=== PATIENT | female | born 1940 | race Caucasian/White ===

== ENCOUNTER 2019-05-28 09:59 | Inpatient (IN) | payer OTHER ==
[~2019-05-28] VITALS: Ht 154.9 cm; Wt 59.0 kg
--- NOTE | ~2019-05-28 | CON ---
[address] [address] CONSULTATION Name: RENITA SIMS Room: [address] IN M.R.#: [id number] Admission: 05/28/19 Attend Phys: Keyonna Kelly Discharge: Date of : 40 Report #: [id number] THIS REPORT FOR: //name// CC: Ulysses Presley DICTATED BY: Melina Boswell [facility] DATE OF SERVICE: 05/29/2019 Please note at the time of this dictation, the patient was seen and physically examined by myself. REASON FOR CONSULTATION: Elevated LFTs. HISTORY OF PRESENT ILLNESS: This is a pleasant 78-year-old female who is well known to our practice, who recently saw Dr. Sorensen in the office for some of her diarrhea, when she was placed on budesonide at that time for her chronic GI issues. She states that it has helped with her overall feeling; however, her bowels are still mushy in consistency and she states it has helped her energy level and her other aspect of life. In further investigating with the patient, she states she did have a cholecystectomy back several years ago, that she states was related to it being nonfunctioning. However, she states over the last several years, she has noted off and on this fullness feeling in her epigastric to upper chest area that may last for not very long, up to 8 hours, and then it goes away and it is very intermittent when it comes back. It is not associated with any other symptoms at that time. The patient states, when she was admitted yesterday after falling and fracturing her left hip, that while she was here last evening, she did have this fullness feeling in her chest that lasted most of the evening, which was noted on admission, her LFTs were completely normal and have gradually tripled to quadrupled in numbers since her being here. She states she is no longer complaining of any chest fullness like she had before. The patient did have an ultrasound back in 08/2018 that was fairly normal except for fatty liver. Her liver enzymes done on 04/16 were completely normal as well, prior to her seeing Dr. Sorensen. ALLERGIES: CIPRO AND QUININE. MEDICATIONS: From home include her gabapentin, Pulmicort, probiotic, Mag-Ox, amlodipine, omeprazole, and her budesonide. PAST MEDICAL HISTORY: Irritable bowel syndrome, hypertension, neuropathy. PAST SURGICAL HISTORY: Hysterectomy, cholecystectomy, appendectomy, and [place] [address] CONSULTATION Name: RENITA SIMS Room: [address] IN [facility].#: [id number] Admission: 05/28/19 Attend Phys: Keyonna Kelly Discharge: Date of : 40 Report #: [id number] FAMILY HISTORY: Negative for any GI or female cancers. SOCIAL HISTORY: Denies any tobacco use or illegal drug use, but does have some alcohol once a week. REVIEW OF SYSTEMS: Twelve-point review of systems is essentially negative except what is mentioned in the HPI. PHYSICAL EXAMINATION: VITAL SIGNS: Temperature 37.1, pulse 73, respirations 16, blood pressure 123/95. HEART: Regular rate and rhythm. LUNGS: Clear. ABDOMEN: Soft, positive bowel sounds in all 4 quadrants with no masses or tenderness noted. LABORATORY DATA: Hemoglobin 13.6, white count is 7.5, platelets is 96. GFR is 61. PT is 10.3 and INR 1. On admission, total bilirubin was 0.6 and today, she elevated to 3.1. Alkaline phosphatase on admission was 264, she is 405. ALT on admission was 188, she is bumped to 362, AST was 110 and she bumped to 580. IMPRESSION: 1. Epigastric fullness last evening, resolved now. 2. Elevated liver function tests. 3. Thrombocytopenia. 4. Fractured left hip with nailing this a.m. 5. History of diarrhea, currently on budesonide. PLAN: 1. We will obtain an ultrasound of her abdomen to further evaluate her liver in CPD since a MRCP is contraindicated with her recent hip nailing this a.m. 2. We will recheck labs, CBC, CMP, and PT/INR in the a.m. 3. Further recommendations to be made once the ultrasound has been reviewed. Thank you for allowing us to participate in this patient's care. Please do not hesitate to call with any questions in regard to this consult. By: [id number] Swartz MD /nt
[~2019-05-28 09:59] MED LIST: AZOR 10-20 MG1 EACH PO; CARAFATE 1 GM TA1 G1 PO; MACRODANTIN50 MG PO; OMEPRAZOLE40 MG PO; PRILOSEC40 MG; PROZAC 10 MG CA10 MG PO
[2019-05-28 10:02] VITALS: BP 145/56
[2019-05-28] MEDS ORDERED: TOLTERODINE TART1 MG PO (10:07)
[2019-05-28] MEDS ORDERED: NEURONTIN 300300 M1 PO (10:07)
[2019-05-28] MEDS ORDERED: MAGOX 400400 MG PO (10:08)
[2019-05-28] MEDS ORDERED: PROBIOTIC1 EAC1 PO (10:08)
[2019-05-28] MEDS ORDERED: PULMICORT0.5 MG/22 INH (10:08)
[2019-05-28 11:22] LABS: ABSOLUTE LYMPHOCYTES 1.7 thou/uL (0.8-5.3); ABSOLUTE MONOCYTES 0.6 thou/uL (0.0-1.2); ABSOLUTE NEUTROPHILS 5.6 thou/uL (1.6-8.1); BASOPHILS 0.6 %; EOSINOPHILS 0.1 %; HEMATOCRIT 39.9 % (37.0-47.0); HEMOGLOBIN 14.1 gm/dL (12.0-15.0); LYMPHOCYTES 20.9 %; MCH 36.1 pg (26.0-34.0); MCHC 35.4 g/dL (28.0-37.0); MCV 102.2 fL (80.0-100.0); MONOCYTES 7.2 %; MPV 9.5 fl. (7.2-11.1); NUCLEATED RBCS 0 /100WBC; PLATELET COUNT* 111 thou/uL (150-400); POLYS 71.2 %; RDW-CV 14.1 % (10.5-14.5); WBC 7.9 thou/uL (4.0-11.0)
[2019-05-28 11:30] LABS: CALCIUM 8.6 mg/dL (8.5-10.1); POTASSIUM 3.3 mmol/L (3.5-5.1)
[2019-05-28 11:35] LABS: ALBUMIN 2.7 g/dL (3.4-5.0); TOTAL BILIRUBIN 0.6 mg/dL (<0.1-1.0); TOTAL PROTEIN 6.1 g/dL (6.4-8.2)
[2019-05-28 12:31] LABS: APTT 23.5 Seconds (25.0-31.3); PROTIME 10.3 Seconds (9.20-11.50)
[2019-05-28 15:30] VITALS: BP 165/108
--- NOTE | 2019-05-28 16:53 | 2DMMODE ---
[place] [address] 2 D/M-MODE ECHOCARDIOGRAM Name: RENITA SIMS Room: [address] IN [facility]#: [id number] Admission: 05/28/19 Attend Phys: Carl Presley Discharge: Date of : 40 Date of Service: 05/28/19 1652 Report #: [id number] THIS REPORT FOR: //name// APPROVED REPORT Study performed: 05/28/2019 14:59:44 EXAM: Comprehensive 2D, Doppler, and color-flow Echocardiogram Patient Location: In-Patient Room #: er Status: stat BSA: 1.57 HR: 77 bpm BP: 154/109 mmHg Rhythm: NSR Other Information Study Quality: Good Indications Murmur 2D Dimensions IVSd: 14.74 (7-11mm) LVOT Diam: 19.67 (18-24mm) LVDd: 38.60 mm PWd: 13.84 (7-11mm) Ascending Ao: 30.31 (22-36mm) LVDs: 21.97 (25-40mm) Aortic Root: 31.30 mm Volumes Left Atrial Volume (Systole) LA ESV Index: 22.80 mL/m2 Aortic Valve AoV Peak Raudel.: 3.09 m/s AO Peak Gr.: 38.25 mmHg LVOT Max P.52 mmHg AO Mean Gr.: 20.83 mmHg LVOT Mean P.01 mmHg LVOT Max V: 1.06 m/s AO V2 VTI: 59.93 cm LVOT Mean V: 0.64 m/s DEBORAH (VTI): 1.02 cm2 LVOT V1 VTI: 20.18 cm Mitral Valve E/A Ratio: 0.70 MV Decel. Time: 332.26 ms MV E Max Raudel.: 0.85 m/[place] [address] 2 D/M-MODE ECHOCARDIOGRAM Name: SIMSRENITA Oziel Room: [address] IN [facility].#: [id number] Admission: 05/28/19 Attend Phys: Carl Presley Discharge: Date of : 40 Date of Service: 05/28/19 1652 Report #: [id number] MV PHT: 96.36 ms MVA (PHT): 2.28 cm2 TDI E/Lateral E': 10.63 E/Medial E': 9.44 Medial E' Raudel.: 0.09 m/s Lateral E' Raudel.: 0.08 m/s Pulmonary Valve PV Peak Raudel.: 0.95 m/s PV Peak Gr.: 3.59 mmHg Left Ventricle The left ventricle is normal size. There is normal LV segmental wall motion. Mild to moderate concentric left ventricular hypertrophy. Left ventricular systolic function is normal. The left ventricular ejection fraction is within the normal range. LVEF is 60-65%. Grade I - abnormal relaxation pattern. Right Ventricle The right ventricle is normal size. The right ventricular systolic function is normal. Atria The left atrium size is normal. The right atrium size is normal. Aortic Valve Moderate aortic valve sclerosis. No aortic regurgitation is present. Moderate aortic stenosis. Mitral Valve There is mitral annular calcification. Trace mitral regurgitation. No evidence of mitral valve stenosis. Tricuspid Valve The tricuspid valve is normal in structure. Unable to assess PA pressure. Trace tricuspid regurgitation. Pulmonic Valve The pulmonary valve is normal in structure. There is no pulmonic valvular regurgitation. Great Vessels The aortic root is normal in size. IVC is normal in size and collapses >50% [place] [address] 2 D/M-MODE ECHOCARDIOGRAM Name: RENITA SIMS Room: [address] IN [facility]#: [id number] Admission: 05/28/19 Attend Phys: Carl Presley Discharge: Date of : 40 Date of Service: 05/28/19 1652 Report #: [id number] Pericardium There is no pericardial effusion. <Conclusion> The left ventricle is normal size. Mild to moderate concentric left ventricular hypertrophy. Left ventricular systolic function is normal. The left ventricular ejection fraction is within the normal range. LVEF is 60-65%. Grade I - abnormal relaxation pattern. The right ventricle is normal size. Moderate aortic valve sclerosis. No aortic regurgitation is present. Moderate aortic stenosis. There is mitral annular calcification. Trace mitral regurgitation. No evidence of mitral valve stenosis. IVC is normal in size and collapses >50% with inspiration. There is no pericardial effusion. There is normal LV segmental wall motion. <ELECTRONICALLY SIGNED> By: Shyam Aguilar MD, [facility] 05/28/191651 51 51 Shyam Aguilar MD, FAC /INF
--- NOTE | 2019-05-28 17:28 | NUR ---
REGULAR DIET TRAY ORDERED FOR PATIENT HER SURGERY HAS BEEN PUSHED BACK TO TOMORROW. PT WILL BE NPO AFTER MIDNIGHT. DIETARY HAS BEEN CALLED AND IS BRINGING HER A TRAY TO ROOM 4.
[2019-05-28 17:44] VITALS: BP 165/108
--- NOTE | 2019-05-28 18:06 | EKG ---
[place] [address] ELECTROCARDIOGRAM REPORT Name: RENITA SIMS Room: [address] ADM IN .R.#: [id number] Admission: 05/28/19 Attend Phys: Keyonna Kelly Discharge: Date of : 40 Report #: [id number] THIS REPORT FOR: //name// [facility] ED Test Date: 2019-05-28 Test Time: 11:20:07 Pat Name: RENITA SIMS Department: Room: [facility] Gender: [place] Bag[employer] Agent: : [id number] Requested By: Shana Gooden Order Number: [id number] MD: Isra Borden Measurements Intervals [place] Rate: 70 P: 53 HI: 123 QRS: -12 QRSD: 82 T: 119 QT: 397 QTc: 429 Interpretive Statements Sinus rhythm Probable left atrial enlargement Abnormal R-wave progression, early transition LVH with secondary repolarization abnormality Compared to ECG 03/28/2016 08:34:00 Early repolarization now present Electronically Signed On 05-28-2019 18:06:15 CDT by Isra Borden [email or web address] <ELECTRONICALLY SIGNED> By: Maru Borden MD, [facility] 05/28/19 1806 1120 1120 Maru Borden MD, [facility] /EPI
[2019-05-28 18:45] VITALS: BP 141/80
--- NOTE | 2019-05-28 19:44 | NUR ---
PATIENT ARRIVED TO UNIT AT 1755. ALERT AND ORIENTED X4. ADMISSION HISTORY AND ASSESSMENT COMPLETED AND CHARTED. VSS ON ROOM AIR. FENTANYL GIVEN IN ED BEFORE PATIENT WAS TRANSFERRED, PAIN RATED AT A 6 AFTER TRANSFERRING FROM ER CART TO THE BED. PATIENT AND ORIENTED TO ROOM. PATIENT RECEIVED A DINNER TRAY AND WILL BE NPO AFTER MIDNIGHT. CALL LIGHT PLACED IN REACH. WILL CONTINUE TO MONITOR.
[2019-05-28 21:21] VITALS: BP 123/95
[2019-05-29 03:49] LABS: HEMATOCRIT 39.1 % (37.0-47.0); HEMOGLOBIN 13.6 gm/dL (12.0-15.0); MCH 35.9 pg (26.0-34.0); MCHC 34.9 g/dL (28.0-37.0); MPV 9.1 fl. (7.2-11.1); RBC 3.8 mil/uL (4.20-5.00); RDW-CV 14.5 % (10.5-14.5); WBC 7.5 thou/uL (4.0-11.0)
[2019-05-29 04:04] LABS: ALBUMIN 2.7 g/dL (3.4-5.0); CALCIUM 8.6 mg/dL (8.5-10.1); CREATININE 0.9 mg/dL (0.6-1.3); POTASSIUM 3.6 mmol/L (3.5-5.1); TOTAL BILIRUBIN 3.1 mg/dL (<0.1-1.0); TOTAL PROTEIN 6.1 g/dL (6.4-8.2)
--- NOTE | 2019-05-29 05:21 | NUR ---
SURGERY FOR 0700 ON 05/29/19. NPO SINCE MIDNIGHT. REQUESTED PAIN MED ONCE GAVE 4MG OF MORPHINE FOR PAIN 03/25. CONSENT AND PRE-OP CHECKLIST ON CHART. CONSENT NOT SIGNED DUE TO NO ORDERS FOR SO. PACU CALLED WILL TRANSPORT AROUND 0540 THIS MORNING. PATIENT WAS ABLE TO SLEEP THROUGH THE NIGHT. STILL HAS BILLINGS.
--- NOTE | 2019-05-29 08:00 | NUR ---
PT IN OR
--- NOTE | 2019-05-29 10:22 | NUR ---
PT JUST BACK FROM PACU. SATS IN LOW 80S. PT PLACED ON NRB MASK. FAMILY AT BS AND UPDATED FROM PLAN OF CARE
[2019-05-29 10:30] VITALS: BP 125/65
--- NOTE | 2019-05-29 15:30 | NUR ---
PT.AWAKE. HAD OR THIS AM. KEPT TAKING O2 OFF. ENCOURAGED HER TO KEEP IT ON. SHE SAID SHE LIVES AT HOME WITH HER . SHE SAID HER CAN HELP HER AT HOME NEEDED. SHE SAID SHE IS NORMALLY INDEPENDNET. SHE HAS A ROLLER WALKER AND A WALKER WITHOUT WHEELS BUT SHE DOESN'T USE THEM. SHE DRIVES, COOKS,SHOPS,CLEANS. DISCUSSED DISCHARGE PLANNING,DEPENDING ON HOW SHE DOES WITH THERAPY. DISCUSSED REHAB UNIT,SNF OR HOME WITH HOME HEALTH . SHE UNDERSTOOD. CM WILL FOLLOW.
[2019-05-29 16:00] VITALS: BP 128/69
--- NOTE | 2019-05-29 17:45 | NUR ---
PT TO OR THIS AM. PT SLIGHTLY CONFUSED WHEN COMING BACK FROM SURGERY BUT SHIFT PROGRESSES PT IS LESS CONFUSED. BANANA BAG INFUSED. PAIN WELL CONTROLLED. TOLERATING PO WELL. AT BS
[2019-05-29 20:25] VITALS: BP 137/72
[2019-05-30] VITALS: BP 141/69
[2019-05-30 03:59] VITALS: BP 125/70
[2019-05-30 04:42] LABS: HEMATOCRIT 35.2 % (37.0-47.0); HEMOGLOBIN 12.2 gm/dL (12.0-15.0)
[2019-05-30 04:50] LABS: INR 0.9; PROTIME 9.3 Seconds (9.20-11.50)
[2019-05-30 05:02] LABS: ALBUMIN 2.3 g/dL (3.4-5.0); CALCIUM 8.4 mg/dL (8.5-10.1); CREATININE 0.8 mg/dL (0.6-1.3); POTASSIUM 3.7 mmol/L (3.5-5.1); TOTAL BILIRUBIN 2.5 mg/dL (<0.1-1.0); TOTAL PROTEIN 5.7 g/dL (6.4-8.2)
--- NOTE | 2019-05-30 06:52 | NUR ---
PT ALERT AND ORIENTED, CONFUSED AT TIMES. ON 3L OF OXYGEN BY NC. PAIN CONTROLLED WITH OXY IR. DRESSING TO LT THIGH C/D/I. BILLINGS IN PLACE. PT SLEEPING WELL THROUGH THE NIGHT. HOURLY ROUNDING COMPLETED. WILL CONTINUE TO MONITOR.
[2019-05-30 08:30] VITALS: BP 114/53
--- NOTE | 2019-05-30 11:06 | NUR ---
Spoke with , anticipates that pt will need skilled at dc. Spoke with Pt's in room, in agreement and wants [facility]. CM faxed initial referral. OT eval ordered today, and will need to be faxed to [phone] once available. Insurance auth will need to be obtained prior to dc.
[2019-05-30 16:00] VITALS: BP 118/58
--- NOTE | 2019-05-30 17:33 | NUR ---
PATIENT RESTING IN BED. PATIENT VERY DROWSY THIS AM, BUT ALERT THIS AFTERNOON. PATIENT HAS BEEN CONFUSED ON AND OFF. PATIENT HAS FAIR APPETITE. DRESSING TO LEFT HIP CLEAN/DRY AND INTACT. PATIENT HAS DENIED ANY NEED FOR PAIN MEDICATION. PATIENT IS UP WITH MODERATE ASSIST OF 2 WITH WALKER AND GAITBELT. PATIENT DENIES ANY NEEDS AT THIS TIME. BED ALARM ON. CALL LIGHT WITHIN REACH.
[2019-05-30 20:30] VITALS: BP 128/63
[2019-05-31 03:55] LABS: HEMATOCRIT 30.6 % (37.0-47.0); HEMOGLOBIN 10.6 gm/dL (12.0-15.0)
[2019-05-31 04:25] LABS: ALBUMIN 1.9 g/dL (3.4-5.0); CALCIUM 8.6 mg/dL (8.5-10.1); CREATININE 1.6 mg/dL (0.6-1.3); POTASSIUM 3.9 mmol/L (3.5-5.1); TOTAL BILIRUBIN 4.6 mg/dL (<0.1-1.0); TOTAL PROTEIN 4.9 g/dL (6.4-8.2)
--- NOTE | 2019-05-31 06:18 | NUR ---
PT SLEPT WELL THROUGH THE NIGHT. DRESSING CLEAN AND DRY. MEDS GIVEN ORDERED. PT ON 3L O2 BY NC. HOURLY ROUNDING COMPLETED. CAPNO IN PLACE. BED ALARM ON FOR SAFETY. WILL CONTINUE TO MONITOR.
[2019-05-31 07:40] VITALS: BP 119/67
[2019-05-31 17:00] VITALS: BP 126/66
--- NOTE | 2019-05-31 18:51 | NUR ---
PATIENT RESTING IN BED. PATIENT DENIES ANY PAIN. PATIENT IS UP WITH MODERATE ASSIST WITH GAIT BELT AND WALKER. PATIENT HAS BEEN UP TO CHAIR X 1. PATIENT HAS OXYGEN ON AT 2L/NC BUT REMOVES FREQUENTLY. OXYGEN SATS DO DROP INTO 80'S WHEN OXYGEN IS REMOVED. PATIENT EDUCATED ON NEED TO KEEP IN PLACE BUT IS FORGETFUL. PATIENT DENIES ANY NEEDS AT THIS TIME. CALL LIGHT WITHIN REACH. WILL CONTINUE TO MONITOR.
[2019-05-31 20:30] VITALS: BP 118/58
[2019-06-01 04:18] LABS: HEMATOCRIT 32.7 % (37.0-47.0); HEMOGLOBIN 11.2 gm/dL (12.0-15.0); MCH 36.2 pg (26.0-34.0); MCHC 34.2 g/dL (28.0-37.0); MCV 105.8 fL (80.0-100.0); MPV 9.4 fl. (7.2-11.1); RBC 3.09 mil/uL (4.20-5.00); RDW-CV 14.6 % (10.5-14.5); WBC 7.6 thou/uL (4.0-11.0)
[2019-06-01 04:32] LABS: CALCIUM 8.8 mg/dL (8.5-10.1); CREATININE 1.5 mg/dL (0.6-1.3); POTASSIUM 3.6 mmol/L (3.5-5.1); TOTAL BILIRUBIN 1.7 mg/dL (<0.1-1.0); TOTAL PROTEIN 5.5 g/dL (6.4-8.2)
--- NOTE | 2019-06-01 05:39 | NUR ---
PT ALERT AND ORIENTED, FORGETFUL AT TIMES. MEDS GIVEN ORDERED. OXY IR GIVEN ONCE THIS SHIFT PER PT REQUEST. DRESSING TO LT THIGH C/D/I. PT ON 2L O2 BY NC, SAT 92-95%. UP TO THE COMMODE WITH 1-2 ASSIST. HOURLY ROUNDING COMPLETED. IV FLUID RUNNING ORDERED. WILL CONTINUE TO MONITOR.
[2019-06-01 07:50] VITALS: BP 142/66
[2019-06-01 11:22] VITALS: BP 142/66
--- NOTE | 2019-06-01 13:38 | NUR ---
FAXED OT MAGO AND P.T. FOLLOW UP NOTE FROM THIS AM TO [facility]. PT.HAD QUESTIONS ABOUT HER DISCHARGE. DISCUSSED WITH HER. SHE IS AWARE INSURANCE NEEDS TO AUTHORIZE SKILLED STAY AT [facility].
[2019-06-01] MEDS ORDERED: VITAMIN D1000 UNI1 PO (15:35)
[2019-06-01] MEDS ORDERED: TUMS PO (15:36)
[2019-06-01] MEDS ORDERED: ELIQUIS2.5 MG PO (15:37)
[2019-06-01] MEDS ORDERED: ROXICODONE5 M2 PO (15:37)
[2019-06-01 16:30] VITALS: BP 114/48
--- NOTE | 2019-06-01 16:38 | NUR ---
PATIENT UP TO CHAIR THIS AM AND INTO AFTERNOON. PATIENT BECAME DIZZY WHEN WORKING WITH THERAPY, VITALS WNL'S AT THAT TIME PER PT. PRN OXY IR GIVEN X 1 THIS SHIFT, NO FURTHER COMPLAINTS OF PAIN. LEFT HIP DRESSING REMAINS INTACT. 02 2L NC REMAINS IN PLACE. IV BANANA BAG CONTINUES INFUSING ORDERED. AWAITING INSURANCE AUTH FOR SNF PLACEMENT TO [facility].
[2019-06-01 20:30] VITALS: BP 125/58
--- NOTE | 2019-06-02 06:16 | NUR ---
PATIENT HAS SLEPT WELL THROUGHOUT THE NIGHT. VSS ON 2L 02 VIA NASAL CANNULA. MEDICATIONS GIVEN ORDERED AND CHARTED. ASSESSMENT CHARTED. NO C/O PAIN. PATIENT IS UP WITH ASSIST X 1 WITH GAITBELT AND WALKER TO [facility]. DRESSING TO LEFT HIP IS C/D/I. IV IN LEFT FOREARM-MULTI VITAMIN BAG RUNNING AT 40ML/HR. FALL PRECAUTIONS IN PLACE AND HOURLY ROUNDS MADE. WILL CONTINUE WITH PLAN OF CARE AND NURSING TO MONITOR.
[2019-06-02 07:50] VITALS: BP 143/60
[2019-06-02] MEDS ORDERED: BUDESONIDE EC3 MG PO (10:31)
--- NOTE | 2019-06-02 11:07 | NUR ---
LEFT MESSAGE AT [facility] FOR [facility] IN ADMISSIONS, TO SEE IF THEY COULD CHECK ON AUTHORIZATION AGAIN FOR PT.TO COME TO SNF.
[2019-06-02 15:53] VITALS: BP 129/55
--- NOTE | 2019-06-02 16:30 | NUR ---
PATIENT UP TO CHAIR THIS AM. PATIENT HAS TO BE ENCOURAGED TO GET OUT OF BED AND WORK WITH THERAPY. 02 2L NC REMAINS IN PLACE. IV SL. SCHED MIRALAX GIVEN THIS AM PER ORDERS, PATIENT REPORTED NO BM IN SEVERAL DAYS. DISCHARGE TO [facility] TOMORROW.
--- NOTE | 2019-06-02 17:02 | NUR ---
SARA/SPENCER CAME TO VISIT PT. SHE SAID THEY HAVE INSURANCE AUTH FOR PT. BUT THEIR ONLY DISCHARGE IS LEAVING TONIGHT, NOT UNTIL 8:30 SHE SAID THEY CAN ACCPET PT.FIRST THING IN AM AFTER ROOM GETS CLEANED OVER AT [facility]. SHE WILL INFORM PT.
[2019-06-02 23:15] VITALS: BP 103/55
--- NOTE | 2019-06-03 06:13 | NUR ---
PATIENT HAS SLEPT WELL THROUGHOUT THE NIGHT. VSS ON 2L 02 VIA NASAL CANNULA. PAIN WELL CONTROLLED. MEDICATIONS GIVEN ORDERED AND CHARTED. PATIENT IS UP WITH ASSIST X 1 WITH GAITBELT AND WALKER TO [facility]. DRESSING TO LEFT HIP IS C/D/I. IV IN LEFT FOREARM-SL. FALL PRECAUTIONS IN PLACE AND HOURLY ROUNDS MADE. WILL CONTINUE WITH PLAN OF CARE AND NURSING TO MONITOR. WILL CONTINUE WITH PLAN OF CARE AND NURSING TO MONITOR.
[2019-06-03 07:25] VITALS: BP 151/73
[2019-06-03 10:08] VITALS: BP 142/66
[2019-06-03 12:08] VITALS: BP 142/66
[2019-06-03 13:39] VITALS: BP 142/66
--- NOTE | 2019-06-03 13:39 | NUR ---
PT IV REMOVED. CHART COPIED. PT BELONGINGS GATHERED. PT LEFT VIA WHEELCHAIR WITH NURSING STAFF TO SKILLED FACILITY. FALL RISK PRECAUTIONS IN PLACE. HOURLY ROUNDING COMPLETED. WILL CONTINUE TO MONITOR.
== END 2019-06-03 13:52 | DRG 480 ==
LOC: M.ERS 09:59 → M.ORTHSURG 11:28 → M.TBA-ER 11:28 → M.ORTHSURG 17:50
PROVIDERS: Nurse Practitioner Adult Health; Orthopaedic Surgery; Personal Emergency Response Attendant; ADMIT Internal Medicine
PROC: 0QH734Z Insertion of Internal Fixation Device into Left Upper Femur, Percutaneous Approach (ICD-10-PCS; principal; 2019-05-29)
DX: M80.052A Age-related osteoporosis with current pathological fracture, left femur, initial encounter for fracture (principal); E43 Unspecified severe protein-calorie malnutrition; N17.9 Acute kidney failure, unspecified; I10 Essential (primary) hypertension; G62.9 Polyneuropathy, unspecified; D69.6 Thrombocytopenia, unspecified; E87.6 Hypokalemia; E80.6 Other disorders of bilirubin metabolism; R74.0 Nonspecific elevation of levels of transaminase and lactic acid dehydrogenase [LDH]; E86.0 Dehydration; K76.0 Fatty (change of) liver, not elsewhere classified; Z90.710 Acquired absence of both cervix and uterus; Z90.49 Acquired absence of other specified parts of digestive tract; Z79.52 Long term (current) use of systemic steroids; Z88.1 Allergy status to other antibiotic agents; Z88.8 Allergy status to other drugs, medicaments and biological substances; Z82.3 Family history of stroke; Z80.42 Family history of malignant neoplasm of prostate